=== PATIENT | female | born 1990 | race African-American/Black ===

== ENCOUNTER 2022-07-11 22:58 | Emergency (ER) | payer OTHER ==
[~2022-07-11] VITALS: Ht 180.3 cm; Wt 88.5 kg
[2022-07-11 23:04] VITALS: BP 165/98
--- NOTE | 2022-07-11 23:08 | NUR ---
to lobby a/w bed ambulatory
--- NOTE | 2022-07-12 03:08 | NUR ---
pt to bed #5 via w/c
[2022-07-12] MEDS ORDERED: DICL100G5 TP (03:55)
[2022-07-12] MEDS ORDERED: CYCL-711 PO (03:55)
[2022-07-12] MEDS ORDERED: IBUP-1842 PO (03:55)
--- NOTE | 2022-07-12 03:55 | NUR ---
31 Y/O F presents with low pack pain and R leg pain due to a work injury yesterday. pt stated " A forklift ran into me while at work." Pt denies any NVD, and headaches. Skin intact and A&Ox4. PMH-pt denies allergies penicillins
--- NOTE | 2022-07-12 03:55 | NUR ---
Dr. Salas at bedside
--- NOTE | 2022-07-12 04:38 | NUR ---
Patient discharged with v/s stable. Written and verbal after care instructions given and explained. Patient alert, oriented and verbalized understanding of instructions. Ambulatory with steady gait. All questions addressed prior to discharge. ID band removed. Patient advised to follow up with PMD. Rx of Flexeril, Diclofenac Sodium, Ibuprofen given. Opportunity to ask questions provided and answered.
== END 2022-07-12 04:38 | disposition home or self-care (01) ==
LOC: MED 22:58
DX: S86.911A Strain of unspecified muscle(s) and tendon(s) at lower leg level, right leg, initial encounter (principal); S29.012A Strain of muscle and tendon of back wall of thorax, initial encounter; Z88.0 Allergy status to penicillin; X50.1XXA Overexertion from prolonged static or awkward postures, initial encounter; Y93.89 Activity, other specified; Y92.89 Other specified places as the place of occurrence of the external cause; Y99.0 Civilian activity done for income or pay
CPT/HCPCS: 99283